=== PATIENT | female | born 1985 | race African-American/Black ===

== ENCOUNTER 2021-02-12 20:33 | Inpatient (IN) | payer MEDICAID, OTHER ==
[~2021-02-12] VITALS: Ht 167.6 cm; Wt 139.0 kg
[2021-02-12 21:27] LABS: Basophils # (auto) 0 10 ^3/uL (0-0.2); Basophils % (auto) 0.3 % (0.0-2.0); Eosinophils # (auto) 0.2 10 ^3/uL (0-0.8); Eosinophils % (auto) 2.1 % (0.0-7.0); Hematocrit 36.6 % (36.0-46.0); Hemoglobin 11.8 g/dL (12.2-16.2); Lymphocytes # (auto) 3.3 10 ^3/uL (0.4-5.4); Mean Corpuscular Hemoglobin 27.7 pg (28.0-32.0); Mean Corpuscular Hgb Conc. 32.3 g/dL (32.0-36.0); Mean Corpuscular Volume 85.6 fL (80.0-100.0); Monocytes # (auto) 0.8 10 ^3/uL (0-1.3); Monocytes % (auto) 7.6 % (0.0-12.0); Neutrophils # (auto) 6.1 10 ^3/uL (1.6-8.6); Nucleated Red Blood Cells % 0.1 %; Red Blood Cells 4.27 10^6/uL (4.0-5.20); Red Cell Distribution Width 17.2 % (11.8-14.3); White Blood Cell 10.4 10^3/uL (4.4-10.8)
[2021-02-12 21:48] LABS: Albumin 2.8 g/dL (3.4-5.0); BUN/Creatinine Ratio 18.2; Calcium 8.9 mg/dL (8.5-10.1); Potassium 4.3 mmol/L (3.5-5.1)
[2021-02-12 21:52] LABS: Bilirubin, Total 0.4 mg/dL (0.2-1.0); Total Protein 6.8 g/dL (6.4-8.2)
[2021-02-12 22:35] LABS: Urine Bacteria NONE SEEN /hpf (None Seen); Urine Blood 2+ /uL (Negative); Urine Specific Gravity 1.004 (1.001-1.035); Urine WBC <1 /hpf (0 - 5)
[2021-02-13] MEDS ORDERED: SODIUM CHLORIDE 0.9% 1,000 ML IV ONE (02:00)
[2021-02-13] MEDS ORDERED: SODIUM CHLORIDE 0.9% 1,000 ML IVB ONE (02:15)
[2021-02-13] MEDS ORDERED: IOHEXOL 350 MG/ML 100ML IJ ONE (02:26)
[2021-02-13] MEDS ORDERED: MORPHINE SULFATE INJECTION 2 MG/ML SYRG IV ONE ×2 (04:15→09:00)
[2021-02-13] MEDS ORDERED: ONDANSETRON HCL 4 MG/2 ML VIAL IV ONE (09:00)
[2021-02-13] MEDS ORDERED: cefTRIAXone 1GM/50ML D5W 50 ML IV ONE (11:45)
[2021-02-13] MEDS ORDERED: NITROGLYCERIN 0.4 MG SL TAB SL PRN ×2 (12:00→13:45)
[2021-02-13] MEDS ORDERED: MORPHINE SULFATE INJECTION 2 MG/ML SYRG IV PRN ×3 (12:00→13:45)
[2021-02-13] MEDS ORDERED: ASPI-325 PO (12:45)
[2021-02-13] MEDS ORDERED: [UNRECOGNIZED DRUG - CODE] PO (12:45)
[2021-02-13] MEDS ORDERED: FAMO-12 PO (12:45)
[2021-02-13] MEDS ORDERED: ZINC220T6 PO (12:45)
[2021-02-13] MEDS ORDERED: DEX4T PO (12:45)
[2021-02-13] MEDS ORDERED: TRIA0.1O TOP (12:45)
[2021-02-13] MEDS ORDERED: RIVA1TAB PO (12:45)
[2021-02-13] MEDS ORDERED: CHOL200035 PO (12:45)
[2021-02-13] MEDS ORDERED: ALBU108A5 INH (12:45)
[2021-02-13] MEDS ORDERED: CETI1TAB36 PO (12:45)
[2021-02-13] MEDS ORDERED: HYDROcodone-ACET 5/325MG TAB PO PRN (13:45)
[2021-02-13] MEDS ORDERED: ALUM & MAG HYDROX-SIMETH LIQ(MAALOX) 30 ML PO PRN (13:45)
[2021-02-13] MEDS ORDERED: ONDANSETRON HCL 4 MG/2 ML VIAL IV PRN (13:45)
[2021-02-13] MEDS ORDERED: DOCUSATE SOD 100 MG CAP PO PRN (13:45)
[2021-02-13] MEDS ORDERED: PANTOPRAZOLE 40 MG/10 ML VIAL INJ IV ONE (13:45)
[2021-02-13] MEDS: SODIUM CHLORIDE 0.9% 1,000 ML IV SCH (13:45)
[2021-02-13] MEDS ORDERED: LORazepam 0.5 MG TAB PO PRN (13:45)
[2021-02-13 14:00] VITALS: BP 100/63
[2021-02-13 15:00] LABS: Cholesterol 140 mg/dL (< 200)
[2021-02-13 15:04] LABS: HDL Cholesterol 45 mg/dL (40-59); LDL Cholesterol 85 mg/dL (< 100); Triglycerides 138 mg/dL (< 150)
[2021-02-13 15:11] LABS: INR 1.04 (0.9-1.15)
[2021-02-13 15:25] VITALS: BP 100/63
[2021-02-13 16:47] LABS: Urine Bacteria NONE SEEN /hpf (None Seen); Urine Blood 3+ /uL (Negative); Urine Specific Gravity 1.005 (1.001-1.035); Urine WBC 1 /hpf (0 - 5)
[2021-02-13 17:00] LABS: Alcohol, Urine < 3.0 mg/dL (0-10); Amphetamine Screen, Urine NEGATIVE (NEGATIVE); Barbiturate Scree,Urine NEGATIVE (NEGATIVE); Benzodiazephine Screen, Urine NEGATIVE (NEGATIVE); Cannabinoid Screen, Urine NEGATIVE (NEGATIVE); Cocaine Screen, Urine NEGATIVE (NEGATIVE); Opiate Scree,Urine NEGATIVE (NEGATIVE); Phencyclidine Screen, Urine NEGATIVE (NEGATIVE)
[2021-02-13] MEDS: SUCRALFATE 1 GM/10 ML ORAL SUSP PO SCH ×2 (17:48→22:07)
[2021-02-13 22:00] VITALS: BP 104/64
[2021-02-13] MEDS ORDERED: ENOXAPARIN SOD 40 MG/0.4 ML SYRINGE SC SCH (22:00)
[2021-02-13] MEDS ORDERED: RIVAROXABAN 15 MG TAB PO SCH (22:00)
[2021-02-13] MEDS: ENOXAPARIN SOD 40 MG/0.4 ML SYRINGE SC SCH (22:07)
[2021-02-13] MEDS: PANTOPRAZOLE 40 MG TAB PO SCH (22:07)
[2021-02-14] MEDS: ACETAMINOPHEN 325 MG TAB PO PRN ×2 (02:28→10:21)
[2021-02-14 04:58] VITALS: BP 100/69
[2021-02-14] MEDS: SODIUM CHLORIDE 0.9% 1,000 ML IV SCH (05:40)
[2021-02-14] MEDS: SUCRALFATE 1 GM/10 ML ORAL SUSP PO SCH ×4 (05:40→22:52)
[2021-02-14 09:00] VITALS: BP 106/63
[2021-02-14] MEDS ORDERED: PANTOPRAZOLE 40 MG/10 ML VIAL INJ IV SCH (10:00)
[2021-02-14] MEDS: GEMFIBROZIL 600 MG TAB PO SCH (10:21)
[2021-02-14] MEDS: PANTOPRAZOLE 40 MG TAB PO SCH ×2 (10:21→22:52)
[2021-02-14] MEDS: ENOXAPARIN SOD 40 MG/0.4 ML SYRINGE SC SCH ×2 (10:21→22:52)
[2021-02-14 11:58] LABS: Basophils # (auto) 0 10 ^3/uL (0-0.2); Basophils % (auto) 0.2 % (0.0-2.0); Eosinophils # (auto) 0.2 10 ^3/uL (0-0.8); Eosinophils % (auto) 3.7 % (0.0-7.0); Lymphocytes # (auto) 1.8 10 ^3/uL (0.4-5.4); Lymphocytes % (auto) 27.8 % (10.0-50.0); Mean Corpuscular Hemoglobin 28.4 pg (28.0-32.0); Mean Corpuscular Hgb Conc. 32.5 g/dL (32.0-36.0); Mean Corpuscular Volume 87.5 fL (80.0-100.0); Monocytes # (auto) 0.4 10 ^3/uL (0-1.3); Monocytes % (auto) 6.4 % (0.0-12.0); Neutrophils % (auto) 61.9 % (37.0-80.0); Red Blood Cells 3.88 10^6/uL (4.0-5.20); Red Cell Distribution Width 17.9 % (11.8-14.3); White Blood Cell 6.4 10^3/uL (4.4-10.8)
[2021-02-14 12:14] LABS: INR 1.05 (0.9-1.15); Partial Thromboplastin Time 22.2 sec (23.6-33.0)
[2021-02-14 12:25] LABS: Albumin 2.6 g/dL (3.4-5.0); Calcium 8.1 mg/dL (8.5-10.1); Potassium 3.9 mmol/L (3.5-5.1)
[2021-02-14 12:30] LABS: BUN/Creatinine Ratio 12.3; Bilirubin, Total 0.5 mg/dL (0.2-1.0); Magnesium 2.3 mg/dL (1.6-2.6); Phosphorus 2.9 mg/dL (2.5-4.90); Total Protein 6.4 g/dL (6.4-8.2); Uric Acid 5.6 mg/dL (2.6-6.0)
[2021-02-14 13:00] VITALS: BP 128/81
[2021-02-14 17:00] VITALS: BP 113/77
[2021-02-14 20:00] VITALS: BP 131/66
[2021-02-14 22:00] VITALS: BP 131/66
[2021-02-15] MEDS: SODIUM CHLORIDE 0.9% 1,000 ML IV SCH (00:25)
[2021-02-15 05:00] VITALS: BP 114/65
[2021-02-15 06:38] LABS: Basophils # (auto) 0 10 ^3/uL (0-0.2); Basophils % (auto) 0.4 % (0.0-2.0); Eosinophils # (auto) 0.2 10 ^3/uL (0-0.8); Eosinophils % (auto) 3.5 % (0.0-7.0); Hematocrit 34.2 % (36.0-46.0); Lymphocytes # (auto) 2.3 10 ^3/uL (0.4-5.4); Lymphocytes % (auto) 36.3 % (10.0-50.0); Mean Corpuscular Hgb Conc. 32.3 g/dL (32.0-36.0); Mean Corpuscular Volume 86.8 fL (80.0-100.0); Monocytes # (auto) 0.4 10 ^3/uL (0-1.3); Monocytes % (auto) 6.7 % (0.0-12.0); Neutrophils # (auto) 3.4 10 ^3/uL (1.6-8.6); Neutrophils % (auto) 53.1 % (37.0-80.0); Nucleated Red Blood Cells % 0.1 %; Red Blood Cells 3.93 10^6/uL (4.0-5.20); Red Cell Distribution Width 17.8 % (11.8-14.3); White Blood Cell 6.4 10^3/uL (4.4-10.8)
[2021-02-15 06:50] LABS: INR 1.03 (0.9-1.15); Partial Thromboplastin Time 25.5 sec (23.6-33.0)
[2021-02-15] MEDS: SUCRALFATE 1 GM/10 ML ORAL SUSP PO SCH ×2 (07:04→11:30)
[2021-02-15 07:05] LABS: Potassium 4.4 mmol/L (3.5-5.1)
[2021-02-15 07:20] LABS: Albumin 2.5 g/dL (3.4-5.0); BUN/Creatinine Ratio 14.1; Bilirubin, Total 0.5 mg/dL (0.2-1.0); Magnesium 2.3 mg/dL (1.6-2.6); Total Protein 5.6 g/dL (6.4-8.2); Uric Acid 5.4 mg/dL (2.6-6.0)
[2021-02-15 08:00] VITALS: BP 109/67
[2021-02-15 09:00] VITALS: BP 109/67
[2021-02-15] MEDS: PANTOPRAZOLE 40 MG TAB PO SCH (10:38)
[2021-02-15] MEDS: GEMFIBROZIL 600 MG TAB PO SCH (10:38)
[2021-02-15] MEDS: ENOXAPARIN SOD 40 MG/0.4 ML SYRINGE SC SCH (10:39)
[2021-02-15 13:00] VITALS: BP 119/79
[2021-02-15] MEDS ORDERED: SUCR1SUS10 PO (13:21)
[2021-02-15] MEDS ORDERED: PANT40T PO (13:21)
[2021-02-15 14:05] VITALS: BP 109/67
== END 2021-02-15 14:45 | disposition home or self-care (01) | DRG 241 ==
LOC: ER 20:33 → OVERFLOW 02-13 11:53 → CENTRAL 02-13 13:21 → EAST 02-14 02:13
PROVIDERS: ADMIT Hospitalist; ATTEND Hospitalist
DX: K29.00 Acute gastritis without bleeding (principal); E43 Unspecified severe protein-calorie malnutrition; E66.2 Morbid (severe) obesity with alveolar hypoventilation; U09.9 Post COVID-19 condition, unspecified; D64.9 Anemia, unspecified; E78.1 Pure hyperglyceridemia; E78.5 Hyperlipidemia, unspecified; Z20.822 Contact with and (suspected) exposure to COVID-19; K21.9 Gastro-esophageal reflux disease without esophagitis; N80.9 Endometriosis, unspecified; N83.202 Unspecified ovarian cyst, left side; N83.201 Unspecified ovarian cyst, right side; Z79.01 Long term (current) use of anticoagulants; Z79.82 Long term (current) use of aspirin; Z68.42 Body mass index [BMI] 45.0-49.9, adult; Z80.0 Family history of malignant neoplasm of digestive organs; Z82.49 Family history of ischemic heart disease and other diseases of the circulatory system; Z86.718 Personal history of other venous thrombosis and embolism; N93.8 Other specified abnormal uterine and vaginal bleeding
CPT/HCPCS: 36415; 71045; 74177; 76856; 80053; 80061; 80307; 81001; 82150; 82306; 83036; 83605; 83690; 83735; 83880; 84100; 84443; 84478; 84484; 84550; 85025; 85610; 85730; 87040; 87081; 87086; 87426; 93971; 96361; 96365; 96375; 96376; C9113; G0378; J0696; J2405